=== PATIENT | female | born 1990 | race Caucasian/White ===

== ENCOUNTER 2017-03-10 21:25 | Inpatient (IN) | payer OTHER ==
[~2017-03-10] VITALS: Ht 160 cm; Wt 64.9 kg
[2017-03-10] MEDS ORDERED: Lactated Ringer's 1,000 ML IV PRN (21:48)
[2017-03-10] MEDS ORDERED: Sodium Chloride LOK Flush 10 mL Syringe IVFLUSH PRN (21:50)
[2017-03-10] MEDS ORDERED: Oxytocin 10 Unit/mL Inj IM PRN (21:50)
[2017-03-10] MEDS ORDERED: Carboprost 250 mCg/mL Inj IM PRN (21:50)
[2017-03-10] MEDS ORDERED: Methylergonovine 0.2 mg/mL Inj IM PRN (21:50)
[2017-03-10] MEDS ORDERED: Hemorrhage Kit, Post Partum XX ONE (21:50)
[2017-03-10] MEDS ORDERED: fentaNYL-PF 50 mCg/mL 2 mL Inj IVPUSH PRN ×2 (21:50→22:25)
[2017-03-10] MEDS ORDERED: Ondansetron 2 mg/mL 2 mL Inj IVPUSH PRN ×2 (21:50→22:25)
[2017-03-10] MEDS ORDERED: Oxytocin 30 Units/500 mL LR 30 UNITS in IV Premix 1 EACH IV PRN (21:50)
[2017-03-10 22:23] LABS: Mean Corpuscular Hemoglobin 30.1 pg (27.0-35.0); Mean Corpuscular Volume 84.6 fL (81-100)
[2017-03-10] MEDS ORDERED: Lactated Ringer's 500 ML IV ONE (22:23)
[2017-03-10] MEDS ORDERED: EPHEDrine Sulfate 50 mg/mL Inj IVPUSH PRN (22:25)
[2017-03-10] MEDS ORDERED: fentaNYL 2 mCg/mL-Bupiv 0.125% 100 ML EPIDURAL SCH (22:25)
[2017-03-10] MEDS ORDERED: Phenylephrine/NS-PF 100 mCg/mL 5 mL Syringe IVPUSH PRN (22:25)
[2017-03-10] MEDS ORDERED: Atropine 1 mg/10 mL (Code) Syringe IVPUSH PRN (22:25)
--- NOTE | 2017-03-10 23:23 | PCM.HPANE ---
Patient Data Date of Service: Mar 10, 2017 Surgeon Admitting Provider:Jose Luis Bull DO Attending Provider:Jose Luis Bull DO Primary Care Physician:Jose Luis Bull DO Other Provider: Reason for Visit Term Labor Check Ht/WT & BMI Body Mass Index Allergies Coded Allergies: No Known Allergies (Unverified , 03/10/17) Past Anesthesia History Anesthesia History: Denies:: Anesthesia Reactions, Fam Anesthesia Reaction Medications Hypertension Medication: No Home Meds Incl Beta Tahir: No History History of ENT Problems?: No Hx of Heart Problems?: No Cardiovascular History: Positive for:: Heart Murmur Hx of Respiratory Problem?: No Hx Neurologic Problems?: No Hx of GI Problems?: No Hx of Problems?: No Female Hx: Positive for:: Currently Hx Musculoskeletal Problems?: No Stop/Bang CAROL Risk Assessment: Low Risk, <3 Yes Risk Assessment Category Category 1A: Patient has history of documented sleep apnea, and HAS NOT received any narcotic, sedative or anesthesia administration during this stay. Category 1B: Patient has history of documented sleep apnea, and HAS received any narcotic , sedative or anesthesia administration during this stay Category 2: Patient has SUSPECTED Obstructive Sleep Apnea, and HAS received any narcotic , sedative or anesthesia administration during this stay. Category 3: Patient has SUSPECTED Obstructive Sleep Apnea and HAS NOT received narcotic, sedative or anesthesia administration during this stay. Category 4: Outpatient in Procedural Areas with known sleep apnea or who screen positive for High Risk via the STOP/BANG questionnaire. Exam Exam Vital Signs BP 123/72 HR 74 99% RA General Appearance: Alert, Oriented X3, Cooperative, Moderate Distress HEENT/AIRWAY: MP 2 Lungs: Clear to Auscultation, Normal Air Movement Heart: Exam Unremarkable, Regular Rate/Rhythm, No Murmurs/Rubs/Gallops Meds/Labs/Diagnostics Labs Test 03/10/17 22:15 White Blood Count 14.6th/mm3 (3.8-10.1) Red Blood Count 4.48mil/mm3 (3.90-5.20) Hemoglobin 13.5g/dL (12.0-15.6) Hematocrit 37.9% (35.0-46.0) Mean Corpuscular Volume 84.6fL (81-100) Mean Corpuscular Hemoglobin 30.1pg (27.0-35.0) Mean Corpuscular Hemoglobin Concent 35.6% (32.0-37.0) Red Cell Distribution Width 12.8% (12.3-15.4) Platelet Count 261bil/L (150-400) Plan Impression Patient chart reviewed, patient interviewed and anesthestic plan with risks, benefits, and alternatives discussed, and informed consent obtained. NPO Status: full stomach ASA Physical Status: ASA2 Mod Systemic Disease Anesthetic Plan: Epidural Bene/Risks/Altern/Consents: Yes HP Complete Prior to Induction: Yes Cristi Cotton MD Mar 10, 2017 22:35
--- NOTE | 2017-03-11 03:25 | PCM.HPOB ---
Subjective Date of Service: Mar 10, 2017 Referring Provider: Admitting Physician: Jose Luis Bull DO Primary Care Physician: Jose Luis Bull DO Attending Physician: Jose Luis Bull DO Chief Complaint Lower Abdominal Pain History of Present History of Present Illness 27 yo at 39w1d by 9wk and 20wk US (LMP uncertain) presents with intermittent lower abdominal pain since 0630 this AM. Around 1800 tonight her pain became more frequent and more intense and she presented to evaluation. Appeared uncomfortable with contractions q2-6 min with cervix 2-3cm, soft, 90% and very high/posterior but no cervical change appreciated over 1 hr so pt was sent home. She returned about 45 in later noting contractions continued to intensify and cervix dilated to 4cm. Denies vaginal bleeding, leaking/gushing of fluids, headaches, or vision changes. Seen yesterday in the office. GBS neg. H/o diet controlled GODM monitored with weekly NSTs. EFW in the 27th percentile at 36 wks by US, and fundal height was 36cm in office yesterday. Initially planned to induce today due to GODM but given her very good BG control and baltazar score of 2 in the office yesterday we elected to wait another week for spontaneous labor. 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 10 point ROS conducted and neg unless otherwise mentioned above. Past Medical History Hx Tobacco Use: No Smoking Status: Never Smoker Hx Alcohol Use: No Hx Substance Use: No Genetic Screening/Counseling Genetic Screening/Counseling: Negative Baby father-had child w defect: No Allergy Coded Allergies: No Known Allergies (Unverified , 03/10/17) Exam Vital Signs 36.4 127/85 18 58 Exam FHT 125, mod BTBV, +accells, no decels, category one CTX q2-3 min Objective 4cm, 90%, -1, posterior, bulging bag Constitutional: Well-developed, Well-nourished, Normal habitus HEENT: Atraumatic, PERRLA, EOMI Lungs: Clear to Auscultation, Normal Air Movement Heart: Exam Unremarkable, Regular Rate/Rhythm, Normal S1, Normal S2, No Murmurs /Rubs/Gallops Fundus 36cm Abdomen: Gravid, Normal bowel sounds, Soft, No tenderness Extremities: Pulses Palpable x4, Warm, No Edema Neurological/Psychiatric: Alert, Oriented X3, Cooperative, No Acute Distress Neuro: Grossly Neurologically Intact, Reflexes 2+, Normal DTRs Gynecologic: Normal: Adnexa/Parametria, Anus/Perineum, Bladder, Breasts, Cervix , External Genitalia, Rectal, Urethral Meatus, Uterus, Vagina/Pelvic Support Labs/Diagnostics Labs Laboratory Tests 72 Hours Test 03/10/17 22:15 White Blood Count 14.6th/mm3 (3.8-10.1) Red Blood Count 4.48mil/mm3 (3.90-5.20) Hemoglobin 13.5g/dL (12.0-15.6) Hematocrit 37.9% (35.0-46.0) Mean Corpuscular Volume 84.6fL (81-100) Mean Corpuscular Hemoglobin 30.1pg (27.0-35.0) Mean Corpuscular Hemoglobin Concent 35.6% (32.0-37.0) Red Cell Distribution Width 12.8% (12.3-15.4) Platelet Count 261bil/L (150-400) Maternal Blood Type: A (Pos) Hx Rho(D) Immune Globulin: No Antibody Screen: neg Group B Strep Results: Negative Previous Infant with GBS: No Rubella: Immune Lab History: Positive for: Hx Chicken Pox, Negative for: Hx Gonorrhea, Hx HIV, Hx Herpes, Hx Syphilis OB Intrapartum Assessment/Plan Assessment Impression: 1. 27yo G1PO at 39w1d by 9wk US in active labor 2. Reassuring FHT 3. Desires epidural 4. diet controlled GODM measuring small, EFW 7 lbs 5. GBS neg Plan: 1. Expectant Managment 2. Epidural after labs done, discussed with anesthesia Problems: (1) Status: Acute ICD Code: Z33.1 Time Spent: 60 min cc: Jose Luis Bull Gary R DO Mar 11, 2017 03:25
[2017-03-11] MEDS: Lactated Ringer's 1,000 ML IV SCH ×4 (04:53→22:23)
[2017-03-11] MEDS ORDERED: Witch Hazel-Glycerin Pads TOPICAL PRN (05:20)
[2017-03-11] MEDS ORDERED: LANOlin HPA 7 Gm Ointment TOPICAL PRN (05:20)
[2017-03-11] MEDS ORDERED: Benzocaine (Dermoplast) 20% 60 Gm Spray TOPICAL PRN (05:20)
[2017-03-11] MEDS ORDERED: Oxytocin 30 Units/500 mL LR 30 UNITS in IV Premix 1 EACH IV PRN (05:20)
[2017-03-11] MEDS: Sodium Chloride LOK Flush 10 mL Syringe IVFLUSH SCH ×2 (07:38→16:30)
--- NOTE | 2017-03-11 21:13 | PCM.ANEP1 ---
Post Anesthesia Phase 1 PACU Phase 1 Assessment Date of Service: Mar 10, 2017 Anesthetic Administered: Epidural Level of Alertness: Awake, talking MÁRQUEZ's with Equal Strength: Yes Pain: No Nausea or Vomiting: No Lungs: Clear to Auscultation, Normal Air Movement Dermatome Level: Full Sensation Joe Joe MD Mar 11, 2017 21:13
--- NOTE | 2017-03-11 21:13 | PCM.ANEP2 ---
Post Anesthesia Evaluation ASA/CMS Post Anesthesia VS in Patient's Normal Range?: Yes Resp Stable; Airway Patent?: Yes CV Function & Hydration Stable: Yes Mental Status Recovered?: Yes Pain control Satisfactory?: Yes N/V Control Satisfactory?: Yes Joe Joe MD Mar 11, 2017 21:13
[2017-03-11] MEDS: Codeine-APAP 30-300 mg Tablet PO PRN (23:07)
[2017-03-12] MEDS: Sodium Chloride LOK Flush 10 mL Syringe IVFLUSH SCH ×2 (00:30→08:30)
[2017-03-12 06:27] LABS: Mean Corpuscular Hemoglobin 29.8 pg (27.0-35.0); Mean Corpuscular Volume 88.6 fL (81-100)
--- NOTE | 2017-03-12 06:57 | PCM.DIOB ---
Obstetrical Disch Instruction Date of Service: Mar 12, 2017 Dates of Hospitalization Date of Hospital Admission Mar 10, 2017 at 22:00 Providers Admitting Physician: Jose Luis Bull DO Primary Care Physician: Jose Luis Bull DO Attending Physician: Jose Luis Bull DO Discharge Diagnosis Problems: (1) Qualifiers: Weeks of gestation: 39 weeks Qualified Code: Z3A.39 - 39 weeks gestation of Status: Resolved ICD Code: Z33.1 Diet Discharge Diet: No restrictions Activity Discharge Activity-General: Pelvic Rest for 6 weeks, Try not to overdue, Be up and about, Balance rest and activity, Activity as pain allows, Activity as energy allows Dressing and Incisional Care Hygiene: May shower, Perineal care, Sitz bath, Dermoplast spray, Witch Tori pads, Ice Follow Up Plan Follow Up Plan 6 weeks Follow-up Provider (F9): Jose Luis Bull DO Call your provider for: Fever or Chills, Shortness of breath, Heavy vaginal bleeding, Epigastric pain, Excessive constipation, Vaginal discomfort, Red painful breasts Jose Luis Bull DO Mar 12, 2017 06:57
[2017-03-12] MEDS ORDERED: DOCU-41 PO (06:59)
[2017-03-12] MEDS ORDERED: IBUP-1827 PO (06:59)
[2017-03-12] MEDS ORDERED: ACET1TAB42 PO (06:59)
[2017-03-12] MEDS: Codeine-APAP 30-300 mg Tablet PO PRN (07:36)
[2017-03-12 07:49] VITALS: BP 110/71; PULSE 58; RESP 18
--- NOTE | 2017-03-12 08:03 | PCM.OBVAG ---
Vaginal Delivery Date of Service Mar 11, 2017 Pre Operative Diagnosis Pre Operative Diagnosis 1. 2. diet controlled GODM Post Operative Diagnosis Post Operative Diagnosis Same Procedure Obstetical Procedure: Normal Spontaneous Vaginal Delivery, Repair of Perineal Tear (2nd degree) Bindery Worker/Branch Sales Manager Provider and Branch Sales Manager: Marilu Bull DO Indication for Procedure Induction: Active labor, SROM (0300), Progressed normally through labor Findings Findings: bilateral labial lacerations Obstetrical Findings: (Female), Cord (3 Vessel), Weight (3103 grams), Presentation (JERRI), 1 minute (9), 5 minutes (9), Placenta ( Intact/Normal), Perineal Laceration (2nd degree) Analgesia/Medications Obstetrical Anesthesia: Epidural, Local Procedure Details Procedure Details at 0420. bilat labial lacerations and 2nd degree perineal lacerations repaired without complication with 3.0 Vicryl. Pt tolerated procedure well. Uterine fundus firm and no bleeding noted after laceration repair. 300ml EBL Specimen none IV Intake/Output Catheters: Urethral 2 Way Guevara, Straight Blood Loss & Administration Estimated Blood Loss: 300 Blood Admin during procedure: No Post Procedure Plan Post delivery Condition: Mom stable, Baby stable to nursery copies to: Jose Luis Bull Gary R DO Mar 11, 2017 05:17
--- NOTE | 2017-03-12 08:09 | PCM.DC.OB ---
Obstetrical Discharge Summary Date of Service Mar 12, 2017 Date of hospital admission Mar 10, 2017 at 22:00 Date of Discharge: Mar 12, 2017 Providers Admitting Physician: Jose Luis Aguilar DO Primary Care Physician: Jose Luis Aguilar DO Attending Physician: Jose Luis Aguilar DO Problems: (1) Qualifiers: Weeks of gestation: 39 weeks Qualified Code: Z3A.39 - 39 weeks gestation of Status: Resolved ICD Code: Z33.1 Consultations none Brief History and Physical: 27 yo at 39w1d by 9wk and 20wk US (LMP uncertain) presents with intermittent lower abdominal pain since 0630 this AM. Around 1800 tonight her pain became more frequent and more intense and she presented to evaluation. Appeared uncomfortable with contractions q2-6 min with cervix 2-3cm, soft, 90% and very high/posterior but no cervical change appreciated over 1 hr so pt was sent home. She returned about 45 in later noting contractions continued to intensify and cervix dilated to 4cm. Denies vaginal bleeding, leaking/gushing of fluids, headaches, or vision changes. Seen yesterday in the office. GBS neg. H/o diet controlled GODM monitored with weekly NSTs. EFW in the 27th percentile at 36 wks by US, and fundal height was 36cm in office yesterday. Initially planned to induce today due to GODM but given her very good BG control and baltazar score of 2 in the office yesterday we elected to wait another week for spontaneous labor. 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 10 point ROS conducted and neg unless otherwise mentioned above. Hospital Course: Patient had an uncomplicated at 0420 on 03/11/17 delivered a healthy 3.103 kg female with Apgars of 9 and 9. Intact placenta delivered minutes later. She had a second-degree perineal laceration that was repaired as well as bilateral labial lacerations were also repaired. On the morning of discharge she is feeling good and has been up ambulating to the bathroom. He has no difficulty with urination has not stooled. Breast-feeding is going well although her nipples sore. She has no swelling in her legs and she feels well. Her pain is well-controlled with Tylenol and Tylenol with codeine. She plans to discuss control at her visit in 6 weeks with me. Discharge physical exam: Gen. appearance: No acute distress. Alert and oriented. Well-nourished well- developed. HEENT: Pupils equally round and reactive to light. Mucous membranes moist. Neck: Supple without lymphadenopathy no thyromegaly or nodules appreciated. Heart: regular rate and rhythm without murmur rub or gallop Lungs: Clear to auscultation bilaterally. Abdomen: Uterine fundus is firm and 2 fingerbreadths below the umbilicus, soft, nontender, nondistended, positive bowel sounds, no hepatosplenomegaly appreciated, no masses Extremities: Without edema, 2 out of 4 distal pulses. Skin: without rash Neuro: No gross deficits of cranial nerves or bilateral upper/lower extremities appreciated. Acetaminophen/Codeine 300-30mg (Acetaminophen/Codeine 300-30mg) 1 Each Tablet 1- 2 TABLET PO Q4H PRN PRN For Pain Prescribed by: JOSE LUIS AGUILAR DO Docusate Sodium (Colace) 100 Mg Capsule 100 MG PO BID Prescribed by: JOSE LUIS AGUILAR DO Ibuprofen (Ibuprofen) 600 Mg Tablet 600 MG PO Q6H PRN PRN For Mild Pain Prescribed by: JOSE LUIS AGUILAR DO Disposition Home Follow-up plan Follow-up in [address] Aguilar Discharge Diet: No restrictions Discharge Activity-General: Pelvic Rest for 6 weeks, Try not to overdue, Be up and about, Balance rest and activity, Activity as pain allows, Activity as energy allows Time spent 30 min copies to: Jose Luis Aguilar Gary R DO Mar 12, 2017 08:09
== END 2017-03-12 11:04 | disposition home or self-care (01) | DRG 775 ==
LOC: FBCO 21:25 → FBC 22:00
PROVIDERS: ADMIT Emergency Medicine; ATTEND Emergency Medicine
PROC: 10E0XZZ Delivery of Products of Conception, External Approach (ICD-10-PCS; principal; 2017-03-11)
PROC: 0KQM0ZZ Repair Perineum Muscle, Open Approach (ICD-10-PCS; 2017-03-11)
DX: O24.420 Gestational diabetes mellitus in childbirth, diet controlled (principal); O70.1 Second degree perineal laceration during delivery; Z3A.39 39 weeks gestation of pregnancy; Z37.0 Single live birth; O77.0 Labor and delivery complicated by meconium in amniotic fluid